=== PATIENT | male | born 1990 ===

== ENCOUNTER → 2018-04-29 15:34 | Outpatient (REF) | payer SELFPAY ==
[2018-04-29 16:22] LABS: Hematocrit 46.2 % (41-53); Hemoglobin 15.8 g/dL (13.5-17.5); Mean Corpuscular Hemoglobin 29.8 PG (26-34); Mean Corpuscular Volume 87.1 fL (80-100); White Blood Cell Count 5.3 X10^3/uL (4.5-11.0)
[2018-04-29 16:23] LABS: Add Manual Diff / Slide Review NO; Basophils Percent Auto 0.7 % (0-2); Eosinophils Percent Auto 1.5 % (2-4); Mean Corpuscular HGB Conc 34.2 % (30-36); Monocytes Percent Auto 7.6 % (3-14); Neutrophils Absolute Auto 2 /uL (3000-5900); Neutrophils Percent Auto 41.2 % (50-75); Platelet Count 218 X10^3/uL (150-400); Red Cell Distribution Width 13.3 % (11.6-14.8)
== END ==
LOC: LAB 15:34
DX: Z00.00 Encounter for general adult medical examination without abnormal findings (principal)
CPT/HCPCS: 85025